=== PATIENT | female | born 1975 | race Caucasian/White ===

== ENCOUNTER → 2021-09-21 12:04 | Outpatient (CLI) | payer BC, SELFPAY ==
--- NOTE | ~2021-09-21 | XR_ITS ---
XR abdomen/kub 1V DATE: 09/21/2021 12:30 INDICATION: Kidney calculus TECHNIQUE: AP projection, 2 views COMPARISON: 02/15/2018 CT abdomen pelvis FINDINGS: IUD overlies the central pelvis. Small calcified calculus overlies lower pole of right kidney. Cannot exclude larger is probably calci fied left renal calculus. Noncontrast CT abdomen pelvis would be more optimal for evaluation of urina ry tract calculi. No evidence of bowel obstruction. The psoas shadows are intact. No visceromegaly is noted. Lung bases appear clear. Included skeletal structures are unremarkable. IMPRESSION: Lower pole right renal calcified calculus. Cannot exclude larger left renal calcified erlin culus. Noncontrast CT abdomen pelvis would be more optimal for evaluation of urinary tract calculi. IUD Reviewed, dictated and finalized at [facility]. Reviewed, dictated and finalized at [facility]. IMPRESSION: Lower pole right renal calcified calculus. Cannot exclude larger le ft renal calcified calculus. Noncontrast CT abdomen pelvis would be more optima l for evaluation of urinary tract calculi. IUD
== END ==
PROVIDERS: Visit Provider Urology
DX: N20.0 Calculus of kidney (principal); Z97.5 Presence of (intrauterine) contraceptive device
CPT/HCPCS: 74018

== ENCOUNTER 2021-11-04 12:51 | Outpatient (CLI) | payer BC, SELFPAY ==
[2021-11-04 13:19] LABS: INR 1.1; Prothrombin Time 13.5 Seconds (11.1-14.7)
[2021-11-04 13:20] LABS: Partial Thromboplastin Time 25.6 SECONDS (22.3-36.8)
== END 2021-11-04 12:52 | disposition home or self-care (01) ==
LOC: ANHSURGERY 12:56
PROVIDERS: Visit Provider Urology
DX: N20.0 Calculus of kidney (principal); Z01.818 Encounter for other preprocedural examination
CPT/HCPCS: 36415; 85610; 85730; 87086

== ENCOUNTER 2021-11-11 00:37 | Day surgery (SDC) | payer BC, SELFPAY ==
[2021-11-01 13:59] VITALS: BMI 25.6
--- NOTE | 2021-11-01 14:08 | PC.NURSE ---
Report to the Outpatient Waiting Room, entrance under the green pavilion located off [facility], at time 6:00 on date 11/11/21. OR Time: 7:30. Time changes happen often and if your time is changed the preop area will call you the afternoon before. - You and your visitor will be asked to self-screen and do not enter if you have any COVID symptoms. - Only one visitor and NO children visitors are allowed at this time. - The patient visitor is requested to leave or wait in car when not with patient due to restrictions. - A mask is required within the hospital. Patients may have clear liquids (water, carbonated beverages, clear teas, apple juice) until 3 hours prior to surgery (4:30) with a maximum of 20 ounces. - No food from midnight until time of surgery Take the following medications with a SIP of water the morning of surgery: NONE Medications to discontinue per physician: ADVIL Date to take last dose: 11/04/[address] BULLOCK Please no make-up, nail kazakh, hairspray, perfume, deodorant, or body powder the day of surgery. No jewelry (including any body piercings) or valuables the day of surgery, leave them at home. Please take a shower or bath the night before, or the morning of, surgery with an antibacterial soap. Wear comfortable, loose fitting clothing. - Jewelry must be removed prior to entering the operating room. Rings and piercings that are not removed may be cut off. - The hospital will not accept responsibility for valuables. - Please leave all valuables, including medications, at home the day of surgery. If you are going home after surgery, a licensed patient transportation driver must drive you home. - NO public transportation without another adult. - We recommend that an adult stay with you for 24 hours following discharge. - We also recommend that you do not drive, make important decision, drink alcoholic beverages, or take any drugs that were not prescribed by your health care provider for at least 24 hours after your discharge time. Follow any additional instructions given to you from your surgeon. If you or anyone in your household have experienced Covid symptoms in the past week, please notify your surgeon or the nurse liaison at the phone number below for possible testing. Telephone instructions given to PT - LEXIS RAUK and asked if any additional questions and then verbalized understanding. Patient advised to call surgeon office or pre surgery nurse liaison [phone] if any additional questions.
--- NOTE | 2021-11-09 07:24 | P.HP_ITS ---
History of Present Illness History of Present Illness Consent: Risks, benefits, and alternatives have been discussed and questions answered. Patient agrees to proceed with procedure. Chief complaint: bilat kidney stones Narrative: Ana Cristina Reina is a 46 year old female who underwent evaluation for hematuria several months ago. A CT abd/pelvis at that time revealed bilateral renal calculi. She did in follow-up for several months but on recent KUB was again found to have calcified bilateral renal stones. On the right side the stones appeared to be his biggest 4 mm but on the left she has at least 110-11 mm calculus. After discussion of options she has elected to proceed with left ESWL. She is aware of the risk including, but not limited to, adverse cardiopulmonary events, renal injury with perinephric hematoma, persistent stone fragments which could obstruct causing pain or infection. Review of Systems Cardiovascular: Cardiovascular: Denies chest pain, Denies lightheadedness, Denies palpitations and Denies dyspnea Respiratory: Respiratory: Denies dyspnea Gastrointestinal: Gastrointestinal: Denies diarrhea, Denies nausea and Denies vomiting Genitourinary: Genitourinary: Denies hematuria and Denies dysuria Endocrine: Endocrine: Denies palpitations PMFSH Past Medical History Medical History Cervix abnormality History of cervical procedure for abnormal pap Vaginal delivery x3 Surgical History Surgical History H/O adenoidectomy History of nasal surgery Social History Social History Smoking packs per day: 0.5 Smoking cigarettes per day: 10.0 Years smoked: 15 Smoking pack-years: 7.50 Smoking status: Former smoker Tobacco type: cigarettes Second hand tobacco smoke exposure: No Smoking end date: 02/19/11 Alcohol intake: never Substance use: never Substance use type: does not use Spiritual care concerns: No Meds Home Medications and Allergies Home Medications Medication Instructions Recorded Confirmed Type levonorgestrel 20 mcg/24 hours (7 1 device intrauterine ONCE 07/03/19 11/01/21 History yrs) 52 mg intrauterine device (Mirena) ibuprofen 200 mg tablet (Advil) 400 mg PO Q6H PRN Pain 11/01/21 11/01/21 History Allergies Allergy/AdvReac Type Severity Reaction Status Date / Time No Known Allergies Allergy Verified 11/01/21 13:58 Exam Const: General: no acute distress Resp: Effort & Inspection: normal respiratory effort GI: Inspection: non-distended GI Palp: No abdominal tenderness and No Guarding due to palpation present (GI) Auscultation: normal bowel sounds Assessment and Plan Assessment and plan (1) Bilateral renal stones: Code(s): N20.0 - Calculus of kidney Status: Acute Assessment and Plan: * Left ESWL
[2021-11-11] VITALS (8 sets, daily range): BP systolic 99–132; BP diastolic 58–72; PULSE 68–98; RESP 9–18; TEMP 36.2–36.7; O2SAT 99–100
--- NOTE | ~2021-11-11 | XR_ITS ---
EXAMINATION: XR abdomen/kub 1V DATE: 11/11/2021 06:28 INDICATION: Kidney stone. TECHNIQUE: A supine view of the abdomen was obtained. COMPARISON: Abdomen radiographs 09/21/2021, CT abdomen and pelvis 02/15/2018 FINDINGS: There are no dilated loops of bowel. There is a 5 mm stone in right kidney. Left kidney is obscured by bowel. There is an intrauterine device in expected position. IMPRESSION: 1. 5 mm stone in right kidney. Reviewed, dictated and finalized at location [facility].
--- NOTE | 2021-11-11 06:25 | WPDHPUPDATE1 ---
History and Physical Update Update Date/Time: 11/11/21 06:25 History and Physical has been reviewed, including an updated exam of the patient. There are NO changes in the patient's condition. Risks, benefits, and alternatives have been discussed and questions answered. Patient agrees to proceed with procedure.
[2021-11-11] MEDS: LACTATED RINGERS 1,000 ML 30 ML IV CONT ×2 (06:45→08:19)
--- NOTE | 2021-11-11 07:05 | P.PNAN_ITS ---
Anes - Initial Pre Proc Eval Procedure: Operation Date: 11/11/21 07:30 Proposed Procedures p Left Extracorporeal Shock Wave Lithotripsy, - Sam Shore MD s Cystoscopy, Left Retrograde Pyelogram, Possible Left Stent Placement - Sam Shore MD Date/Time: 11/11/21 07:05 Surgeon: Sam Shore MD Pre Op Diagnosis: bilat kidney stones Patient Data Age: 46 Gender: F Height: 1.57 m Weight: 64.85 kg Last Vital Signs Temp 36.2 C L 11/11/21 06:33 Pulse 70 11/11/21 06:33 Resp 16 11/11/21 06:33 BP 122/58 L 11/11/21 06:33 Pulse Ox 100 11/11/21 06:33 O2 Del Method Room Air 11/11/21 06:33 Allergies Allergy/AdvReac Type Severity Reaction Status Date / Time No Known Allergies Allergy Verified 11/11/21 06:37 Home Medications Medication Instructions Recorded Confirmed Type levonorgestrel 20 mcg/24 hours (7 1 device intrauterine ONCE 07/03/19 11/11/21 History yrs) 52 mg intrauterine device (Mirena) ibuprofen 200 mg tablet (Advil) 400 mg PO Q6H PRN Pain 11/01/21 11/11/21 History Patient hx anesthesia problems: none Family hx anesthesia problems: none Results Review: All pre-operative results and documents have been reviewed as part of the pre- operative evaluation. [facility] Past Medical History Medical History Cervix abnormality History of cervical procedure for abnormal pap Vaginal delivery x3 Surgical History Surgical History H/O adenoidectomy History of nasal surgery Social History Social History Smoking packs per day: 0.5 Smoking cigarettes per day: 10.0 Years smoked: 15 Smoking pack-years: 7.50 Smoking status: Former smoker Tobacco type: cigarettes Second hand tobacco smoke exposure: No Smoking end date: 02/19/11 Alcohol intake: never Substance use: never Substance use type: does not use Living arrangements: with family Spiritual care concerns: No Anes - Eval Final PreProcedure Day of Procedure 11/11/21 07:05 Patient weight: overweight Heart: regular rate and rhythm Lungs: clear to auscultation and normal air movement Airway: Mallampati scale class II Neurological: alert and oriented Last oral intake: >/= 8 hours ASA classification: II Emergent: no Anesthetic plan: proceed Anesthesia type and monitoring: general GIVS Results Review: All pre-operative results and documents have been reviewed as part of the pre- operative evaluation. Informed Consent: The patient's anesthetic plan and its attendant risks and benefits were discussed with the patient/family/POA. Questions were solicited and answers provided to the satisfaction of the patient/family/POA.
[2021-11-11] MEDS: ceFAZolin 2 GM/D5W 50 ML 2 GM/50 ML BAG IVPB (07:25)
--- NOTE | 2021-11-11 07:50 | W.PM.PROC2 ---
Procedure Note - Detailed Date of Procedure 11/11/21 Pre-op Diagnosis Bilat kidney stones Post-op Diagnosis Same Procedure Performed Left ESWL Surgeon Sam Shore MD Description of Procedure The patient was brought to the operative suite where she was placed in the supine position on the Dornier lithotripsy table. The focal point of the lithotripter was placed at a 10mm left renal alculus calculus. A total of 2500 shocks were delivered at a power setting of 4. There appeared to be good fragmentation of the stone. The patient tolerated the procedure well and was taken to the recovery room in good condition. Drains Yes Packing Yes Pathology Yes Complications No immediate complications Disposition PACU
== END 2021-11-11 09:55 | disposition home or self-care (01) ==
PROVIDERS: Visit Provider Urology
PROC: (CPT 50590; principal; 2021-11-11 07:30)
DX: N20.0 Calculus of kidney (principal); Z87.891 Personal history of nicotine dependence
CPT/HCPCS: 50590; 74018; A9270; J0690; J1100; J2250; J2405; J2704; J3010; J7120

== ENCOUNTER → 2021-12-01 10:51 | Outpatient (CLI) | payer BC, SELFPAY ==
--- NOTE | ~2021-12-01 | XR_ITS ---
EXAMINATION: XR abdomen/kub 1V DATE: 12/01/2021 11:05 INDICATION: Kidney stone. TECHNIQUE: A supine view of the abdomen on 2 radiographs was obtained. COMPARISON: Abdomen radiographs 11/11/2021, CT abdomen and pelvis 02/15/2018 FINDINGS: There are no dilated loops of bowel. There is an intrauterine device in expected position. There is a 4 mm stone in right kidney. IMPRESSION: 1. 4 mm stone in right kidney. Reviewed, dictated and finalized at location [facility].
== END ==
PROVIDERS: Visit Provider Urology
DX: N20.0 Calculus of kidney (principal)
CPT/HCPCS: 74018

== ENCOUNTER → 2021-12-10 11:17 | Outpatient (CLI) | payer BC, SELFPAY ==
--- NOTE | ~2021-12-10 | MM_ITS ---
EXAMINATION: MM screening rick BI w sera HISTORY: Screening mammogram TECHNIQUE: Craniocaudal and mediolateral oblique 3-D tomosynthesis images were obtained and synthetic 2-D images were generated. CAD analysis was submitted and interpreted. COMPARISON: 11/07/2018, 05/07/2018, 04/19/2018 BREAST PARENCHYMAL COMPOSITION: The breasts are heterogeneously dense, which may obscure small masses . FINDINGS: There is a stable mass in the anterior third of the upper right breast. No suspicious mass, calcification, or architectural distortion are identified in either breast to suggest malignancy. Th ere has been no suspicious interval change. IMPRESSION: 1. No mammographic evidence of malignancy. 2. Recommend routine screening mammography in one year. BI-RADS Category 2: Benign finding(s). Reviewed, dictated and finalized at location [facility].
== END ==
PROVIDERS: PCP Student in an Organized Health Care Education/Training Program; Visit Provider Student in an Organized Health Care Education/Training Program
DX: Z12.31 Encounter for screening mammogram for malignant neoplasm of breast (principal)
CPT/HCPCS: 77063; 77067

== ENCOUNTER → 2022-06-16 12:29 | Outpatient (CLI) | payer BC, SELFPAY ==
--- NOTE | ~2022-06-16 | XR_ITS ---
EXAMINATION: XR abdomen/kub 1V INDICATION: Bilateral kidney stones TECHNIQUE: Supine views of the abdomen were obtained on 2 radiographs. COMPARISON: 12/01/2021 FINDINGS: There is a 4 mL stone of the right kidney. No additional urolithiasis is identified. An IUD is noted. The visualized lung bases are clear. The bowel gas pattern is normal. IMPRESSION: 1. Right nephrolithiasis. Reviewed, dictated and finalized at location [facility]. IMPRESSION: 1. Right nephrolithiasis.
== END ==
PROVIDERS: Visit Provider Urology
DX: N20.0 Calculus of kidney (principal)
CPT/HCPCS: 74018

== ENCOUNTER 2023-09-08 10:26 | Outpatient (CLI) | payer BC, SELFPAY ==
--- NOTE | ~2023-09-08 | MM_ITS ---
EXAMINATION: MM screening rick BI w sera HISTORY: Screening TECHNIQUE: Craniocaudal and mediolateral oblique 3-D tomosynthesis images were obtained and synthetic 2-D images were generated. CAD analysis was submitted and interpreted. COMPARISON: Comparison to multiple prior studies sequentially, with oldest reviewed study dated 02/2018. BREAST PARENCHYMAL COMPOSITION: Not dense: There are scattered areas of fibroglandular density. FINDINGS: Stable mass in the upper central aspect of the right breast posterior to the nipple, presum ably benign. There is no evidence of suspicious mass, calcification, or architectural distortion to s uggest malignancy in either breast. There has been no suspicious interval change. IMPRESSION: 1. No mammographic evidence of malignancy. 2. Recommend routine screening mammography in one year. BI-RADS Category 1: Negative Reviewed, dictated and finalized at location [facility].
== END 2023-09-08 10:27 ==
LOC: MICIMG 10:27
PROVIDERS: PCP Clinical Nurse Specialist; Visit Provider Registered Nurse
DX: Z12.31 Encounter for screening mammogram for malignant neoplasm of breast (principal)
CPT/HCPCS: 77063; 77067

== ENCOUNTER 2024-09-10 12:38 | Outpatient (CLI) | payer OTHER, SELFPAY ==
--- NOTE | ~2024-09-10 | MM_ITS ---
EXAMINATION: MM screening rick BI w sera HISTORY: Screening TECHNIQUE: Craniocaudal and mediolateral oblique 3-D tomosynthesis images were obtained and synthetic 2-D images were generated. CAD analysis was submitted and interpreted. COMPARISON: Comparison to multiple prior studies sequentially, with oldest reviewed study dated 2018. BREAST PARENCHYMAL COMPOSITION: The breasts are heterogeneously dense, which may obscure small masses . FINDINGS: There is no evidence of suspicious mass, calcification, or architectural distortion to sug gest malignancy in either breast. IMPRESSION: 1. No mammographic evidence of malignancy. 2. Recommend routine screening mammography in one year. BI-RADS Category 1: Negative Reviewed, dictated and finalized at location B.
== END 2024-09-10 12:39 | disposition home or self-care (01) ==
PROVIDERS: PCP Obstetrics & Gynecology; Visit Provider Nurse Practitioner Family
DX: Z12.31 Encounter for screening mammogram for malignant neoplasm of breast (principal)
CPT/HCPCS: 77063; 77067